=== PATIENT | female | born 1990 | race Caucasian/White ===

== ENCOUNTER 2023-04-20 18:57 | Emergency (ER) | payer OTHER ==
[2023-04-20 19:21] VITALS: BMI 23.0
[2023-04-20] MEDS ORDERED: predniSONE 20 MG TABLET (UD) ONE (19:48)
[2023-04-20] MEDS ORDERED: ACETAMINOPHEN 500 MG TABLET (FP) ONE (19:48)
[2023-04-20] MEDS ORDERED: diphenhydrAMINE HCL 50 MG CAPSULE ONE (19:48)
[2023-04-20] MEDS: predniSONE 20 MG TABLET (UD) PO ONE (19:50)
[2023-04-20] MEDS: ACETAMINOPHEN 500 MG TABLET (FP) PO ONE (19:50)
[2023-04-20] MEDS: diphenhydrAMINE HCL 25 MG CAPSULE (FP) PO ONE (19:50)
[2023-04-20 20:49] VITALS: BP 122/81; PULSE 91; RESP 16; TEMP 99.1
== END 2023-04-20 20:58 | disposition home or self-care (01) ==
LOC: FER 18:57
DX: R50.9 Fever, unspecified (principal); R21 Rash and other nonspecific skin eruption; J02.9 Acute pharyngitis, unspecified; R52 Pain, unspecified; R11.2 Nausea with vomiting, unspecified; Z20.822 Contact with and (suspected) exposure to COVID-19
CPT/HCPCS: 0241U-QW; 87070; 99283-25

== ENCOUNTER 2023-04-22 07:13 | Emergency (ER) | payer OTHER ==
[2023-04-22 07:32] VITALS: RESP 18; TEMP 98.8; BMI 23.0
[2023-04-22] MEDS: ONDANSETRON 4 MG TABLET PO ONE (07:45)
[2023-04-22] MEDS: SODIUM CHLORIDE 1,000 ML IV ONE ×2 (07:45→12:12)
[2023-04-22] MEDS ORDERED: ACETAMINOPHEN INJECTION 100 ML IVPB ONE (07:46)
[2023-04-22] MEDS ORDERED: ONDANSETRON 4 MG/2 ML VIAL ONE (07:46)
[2023-04-22] MEDS ORDERED: FAMOTIDINE 20 MG/50 ML IVPB 20 MG/50 ML MG IVPB ONE (07:46)
[2023-04-22] MEDS: ACETAMINOPHEN 1000 MG/100 ML BAG IVPB ONE (07:50)
[2023-04-22] MEDS: FAMOTIDINE 20 MG/50 ML IVPB 20 MG in PREMIX 50 IVPB ONE (08:02)
[2023-04-22 08:26] LABS: HEMATOCRIT 36.3 % (32.4-45.2); HEMOGLOBIN 12.8 G/dL (10.7-15.3); MCHC 35.2 g/dl (32.0-36.0); MEAN CELL VOLUME 85.5 fl (80-96); PLATELET COUNT 178.9 10^3/uL (134-434); RBC 4.25 10^6/uL (3.60-5.2); RDW 13.4 % (11.6-15.6); WHITE BLOOD COUNT 5.2 10^3/uL (4.0-10.8)
[2023-04-22 08:30] LABS: PLATELET ESTIMATE ADEQUATE
[2023-04-22 08:32] LABS: ALBUMIN 4.4 g/dl (3.4-5.0); BILIRUBIN,TOTAL 0.3 mg/dl (0.2-1); CALCIUM 9.3 mg/dl (8.5-10.1); CREATININE 0.8 mg/dl (0.6-1.3); POTASSIUM 3.8 mmol/L (3.5-5.1)
[2023-04-22] MEDS ORDERED: METOCLOPRAMIDE HCL INJECTION 10 MG/2 ML VIAL ONE (09:17)
[2023-04-22] MEDS: METOCLOPRAMIDE HCL INJECTION 10 MG/2 ML VIAL IVPUSH ONE (09:24)
[2023-04-22] MEDS ORDERED: morphine SULFATE 4 MG/ML VIAL ONE (13:48)
[2023-04-22] MEDS: morphine CARPU-JECT 4 MG/1 ML DISP.SYRIN IVPUSH ONE (14:01)
[2023-04-22 14:28] VITALS: BP 118/78; PULSE 86
[2023-04-22 15:08] LABS: EPITHELIAL CELLS >50 /hpf
== END 2023-04-22 15:24 | disposition home or self-care (01) ==
LOC: FER 07:13
PROC: 3E033GC Introduction of Other Therapeutic Substance into Peripheral Vein, Percutaneous Approach (ICD-10-PCS; principal; 2023-04-22)
PROC: 3E033GC Introduction of Other Therapeutic Substance into Peripheral Vein, Percutaneous Approach (ICD-10-PCS; 2023-04-22)
PROC: 3E033GC Introduction of Other Therapeutic Substance into Peripheral Vein, Percutaneous Approach (ICD-10-PCS; 2023-04-22)
PROC: 3E033NZ Introduction of Analgesics, Hypnotics, Sedatives into Peripheral Vein, Percutaneous Approach (ICD-10-PCS; 2023-04-22)
PROC: 3E0337Z Introduction of Electrolytic and Water Balance Substance into Peripheral Vein, Percutaneous Approach (ICD-10-PCS; 2023-04-22)
PROC: 3E0337Z Introduction of Electrolytic and Water Balance Substance into Peripheral Vein, Percutaneous Approach (ICD-10-PCS; 2023-04-22)
DX: R10.30 Lower abdominal pain, unspecified (principal); R11.2 Nausea with vomiting, unspecified; R05.9 Cough, unspecified; R09.81 Nasal congestion; M79.10 Myalgia, unspecified site
CPT/HCPCS: 36415; 74177-TC; 80053; 81003; 81015; 84703; 85027; J0131; Q9967